=== PATIENT | female | born 1940 | race Caucasian/White ===

== ENCOUNTER 2023-12-03 16:44 | Emergency (ER) | payer MEDICARE, OTHER ==
[~2023-12-03] VITALS: Ht 152.4 cm; Wt 72.6 kg
[2023-12-03 16:51] VITALS: BP 160/72; PULSE 66; RESP 17
[2023-12-03 17:17] LABS: RAPID GROUP A STREP negative (NEGATIVE)
[2023-12-03 17:19] LABS: SARS-CoV-2, RNA, NAAT NEGATIVE SARS CoV-2 (NEGATIVE)
[2023-12-03 17:26] LABS: INFLUENZA TYPE A Negative For Type A (NEGATIVE); INFLUENZA TYPE B Negative For Type B (NEGATIVE)
[2023-12-03 17:34] LABS: ADD UA MICROSCOPIC YES; APPEARANCE,URINE HAZY (CLEAR); BILIRUBIN,URINE NEGATIVE (NEGATIVE); COLOR,URINE YELLOW (YELLOW); GLUCOSE, URINE (UA) NEGATIVE (NEGATIVE); KETONES,URINE NEGATIVE (NEGATIVE); LEUKOCYTE ESTERASE ,URINE 500 Leu/uL (NEGATIVE); NITRATE,URINE NEGATIVE (NEGATIVE); PROTEIN,URINE NEGATIVE (NEGATIVE); UROBILINOGEN,URINE 0.2 mg/dL (0.2-1.0)
[2023-12-03 17:40] LABS: BACTERIA,URINE MOD /HPF (None Seen); MUCUS,URINE RARE LPF (None Seen); SQUAMOUS EPITHELIAL CELL,UR RARE /HPF (0-2); WBC CLUMP FEW /HPF (0-1); WBC,URINE TNTC /HPF (0-1)
[2023-12-03] MEDS ORDERED: FOSF3PAC4 PO (19:13)
== END 2023-12-03 19:34 | disposition home or self-care (01) ==
LOC: EDH 16:44
DX: R50.9 Fever, unspecified (principal); J02.9 Acute pharyngitis, unspecified; I10 Essential (primary) hypertension; Z20.822 Contact with and (suspected) exposure to COVID-19; Z79.899 Other long term (current) drug therapy; Z88.0 Allergy status to penicillin; Z88.2 Allergy status to sulfonamides; Z88.8 Allergy status to other drugs, medicaments and biological substances
CPT/HCPCS: 81001; 87077; 87088; 87186; 87635; 87804; 87880